=== PATIENT | female | born 1980 | race Caucasian/White ===

== ENCOUNTER 2020-10-19 11:17 | Outpatient (CLI) | payer MEDICARE, SELFPAY | END 2020-10-19 11:18 | disposition home or self-care (01) | LOC: ANHAUDIO 11:32 → ANHBWCAUD 15:23 | PROVIDERS: PCP Family Medicine; Visit Provider Family Medicine | DX: H91.93 Unspecified hearing loss, bilateral (principal) | CPT/HCPCS: 92557; 92567 ==

== ENCOUNTER 2024-04-09 08:33 | Outpatient (CLI) | payer MEDICARE, MEDICAID, SELFPAY | END 2024-04-09 08:34 | disposition home or self-care (01) | LOC: ANHBWCAUD 08:33 | PROVIDERS: PCP Family Medicine; Visit Provider Family Medicine | DX: H90.3 Sensorineural hearing loss, bilateral (principal) | CPT/HCPCS: 92557; 92567 ==